=== PATIENT | male | born 1975 | race African-American/Black ===

== ENCOUNTER 2020-03-31 04:27 | Inpatient (IN) ==
[2020-03-31] MEDS ORDERED: SODIUM CHLORIDE 0.9% 1,000 ML IV STA (04:43)
[2020-03-31] MEDS ORDERED: ONDANSETRON 4 MG/2 ML VIAL IV STA (04:43)
[2020-03-31] MEDS ORDERED: DIPH/TET/ACEL PERT BOOSTER VACCINE 0.5 ML VIAL IM ONE (04:43)
[2020-03-31] MEDS ORDERED: HYDROmorphone 2 MG/1 ML VIAL IV STA (04:43)
[2020-03-31 05:07] LABS: Basophils % 0.2 % (0.0-0.8); Eosinophils # 0.1 10*3/uL (0.0-0.87); Hematocrit 43.7 VOL% (42.0-52.0); Hemoglobin 14.2 GM/DL (14.0-18.0); Immature Granulocytes % 0.4 %; Immature Granulocytes Absolute 0.04 #; Lymphocytes # 2.5 10*3/uL (1.4-4.0); Lymphocytes % 23.7 % (21.2-54.2); Mean Corpuscular HGB Conc 32.5 GM/DL (32-36); Mean Corpuscular Volume 99.1 FL (87-102); Mean Platelet Volume 10.2 FL (9.6-12.0); Monocytes % 10.9 % (1.7-12.7); Neutrophils % 63.8 % (38.7-73.9); Platelet Count 271 T/CUMM (130-400); Red Blood Count 4.41 MC/CUMM (3.8-5.5); Red Cell Distribution Width 13.2 % (9.3-17.3); White Blood Count 10.7 T/CUMM (4-12)
[2020-03-31 05:11] LABS: INR 0.9; PT Patient Result 9.8 SECS (9.8-11.9)
[2020-03-31 05:18] LABS: Alanine Aminotransferase 29 U/L (16-61); Albumin 3.5 G/DL (3.4-5.0); Alkaline Phosphatase 103 U/L (45-117); Aspartate Amino Transferase 25 U/L (0-37); Bilirubin,Total < 0.39 MG/DL (0.2-1.0); Blood Urea Nitrogen 15 MG/DL (7-18); Calcium 9.2 MG/DL (8.5-10.1); Estimated Glom Filtration Rate 98 ML/MIN; Glucose 87 MG/DL (74-106); Osmolality,Calculated 274.7 MOS/KG (273-304); Total Protein 7.5 G/DL (6.4-8.3)
[2020-03-31 05:26] LABS: Hypochromasia 1+; Platelet Estimate Adequate
[2020-03-31] MEDS ORDERED: SODIUM CHLORIDE 0.9% 1,000 ML IV SCH (06:39)
[2020-03-31] MEDS ORDERED: ceFAZolin 1,000 MG in SYRINGE 1 EACH IV ONE ×3 (06:39→08:26)
[2020-03-31] MEDS ORDERED: ONDANSETRON 4 MG/2 ML VIAL IV PRN ×2 (06:39→10:25)
[2020-03-31] MEDS ORDERED: HYDROmorphone 2 MG/1 ML VIAL IV PRN (06:39)
[2020-03-31] MEDS ORDERED: MAGNESIUM HYDROXIDE SUSP 30 ML UDCUP PO PRN (06:39)
[2020-03-31 06:59] LABS: Basophils % 0.2 % (0.0-0.8); Eosinophils % 0.4 % (0.00-10.9); Hematocrit 38.8 VOL% (42.0-52.0); Hemoglobin 12.8 GM/DL (14.0-18.0); Immature Granulocytes % 0.4 %; Immature Granulocytes Absolute 0.04 #; Lymphocytes # 2.1 10*3/uL (1.4-4.0); Lymphocytes % 21.1 % (21.2-54.2); Mean Corpuscular Volume 96.5 FL (87-102); Mean Platelet Volume 9.9 FL (9.6-12.0); Monocytes % 9.4 % (1.7-12.7); Neutrophils % 68.5 % (38.7-73.9); Platelet Count 242 T/CUMM (130-400); Red Blood Count 4.02 MC/CUMM (3.8-5.5); Red Cell Distribution Width 13.2 % (9.3-17.3); White Blood Count 9.8 T/CUMM (4-12)
[2020-03-31 07:18] LABS: Albumin 3.1 G/DL (3.4-5.0); Bilirubin,Total 0.9 MG/DL (0.2-1.0); Calcium 8.5 MG/DL (8.5-10.1); Total Protein 6.5 G/DL (6.4-8.3)
[2020-03-31 07:19] LABS: Osmolality,Calculated 277.5 MOS/KG (273-304)
[2020-03-31 07:23] LABS: Hypochromasia 1+; Lymphocytes 24 % (20-55); Platelet Estimate Adequate; Segmented Neutrophils 68 % (50-85); Total Cells Counted 100
[2020-03-31] MEDS ORDERED: BACITRACIN OINT 0.9 GM PACK TOP ONE (07:47)
[2020-03-31 08:14] LABS: Barbiturates Screen,Urine Negative (Negative); Benzodiazepines Screen,Urine Negative (Negative); Cannabinoid Screen,Urine Positive (Negative); Opiate Screen,Urine Positive (Negative); Phencyclidine Screen,Urine Negative (Negative)
[2020-03-31] MEDS ORDERED: ceFAZolin 1,000 MG VIAL ONE (08:27)
[2020-03-31] MEDS ORDERED: LIDOCAINE 2% 5 ML VIAL ONE (10:13)
[2020-03-31] MEDS ORDERED: SEVOFLURANE 1 UNIT/15 MINUTE INH ONE (10:13)
[2020-03-31] MEDS ORDERED: propofoL 200 MG/20 ML VIAL IV ONE (10:13)
[2020-03-31] MEDS ORDERED: ROCURONIUM 100 MG/10 ML VIAL IV ONE (10:14)
[2020-03-31] MEDS ORDERED: ESMOLOL 100 MG/10 ML VIAL IV ONE (10:14)
[2020-03-31] MEDS ORDERED: METOPROLOL TARTRATE 5 MG/5 ML VIAL IV ONE (10:14)
[2020-03-31] MEDS ORDERED: GLYCOPYRROLATE 0.4 MG/2 ML VIAL ONE (10:14)
[2020-03-31] MEDS ORDERED: ONDANSETRON 4 MG/2 ML VIAL ONE (10:14)
[2020-03-31] MEDS ORDERED: NEOSTIGMINE 10 MG/10 ML VIAL ONE (10:14)
[2020-03-31] MEDS ORDERED: DEXAMETHASONE 4 MG/1 ML VIAL ONE (10:14)
[2020-03-31] MEDS ORDERED: MIDAZOLAM 2 MG/2 ML VIAL ONE (10:14)
[2020-03-31] MEDS ORDERED: fentaNYL 100 MCG/2 ML VIAL ONE (10:14)
[2020-03-31] MEDS ORDERED: PHENYLEPHRINE 1 MG/10 ML SYRINGE IV ONE (10:15)
[2020-03-31] MEDS: HYDROmorphone 2 MG/1 ML VIAL IV PRN ×3 (10:29→11:34)
[2020-03-31] MEDS ORDERED: diphenhydrAMINE CAP 25 MG CAPSULE PO PRN (10:30)
[2020-03-31] MEDS ORDERED: MORPHINE 4 MG/1 ML VIAL IV PRN (10:30)
[2020-03-31] MEDS ORDERED: LACTATED RINGERS 1,000 ML IV SCH (10:30)
[2020-03-31] MEDS ORDERED: KETOROLAC 30 MG/1 ML VIAL IV PRN (10:30)
[2020-03-31] MEDS: ceFAZolin 1,000 MG in SYRINGE 1 EACH IV SCH (15:17)
[2020-03-31] MEDS: MORPHINE 4 MG/1 ML VIAL IV PRN (21:18)
[2020-04-01] MEDS: ceFAZolin 1,000 MG in SYRINGE 1 EACH IV SCH ×4 (00:25→23:22)
[2020-04-01] MEDS: MORPHINE 4 MG/1 ML VIAL IV PRN ×2 (04:51→20:21)
[2020-04-01 05:14] LABS: Basophils % 0.2 % (0.0-0.8); Eosinophils % 0.1 % (0.00-10.9); Hematocrit 37.6 VOL% (42.0-52.0); Hemoglobin 12.4 GM/DL (14.0-18.0); Immature Granulocytes % 0.5 %; Immature Granulocytes Absolute 0.07 #; Lymphocytes # 2.1 10*3/uL (1.4-4.0); Lymphocytes % 14.4 % (21.2-54.2); Mean Corpuscular Volume 95.4 FL (87-102); Mean Platelet Volume 10.4 FL (9.6-12.0); Monocytes % 12.3 % (1.7-12.7); Neutrophils % 72.5 % (38.7-73.9); Platelet Count 239 T/CUMM (130-400); Red Blood Count 3.94 MC/CUMM (3.8-5.5); Red Cell Distribution Width 13.1 % (9.3-17.3); White Blood Count 14.4 T/CUMM (4-12)
[2020-04-01 05:30] LABS: Calcium 8.4 MG/DL (8.5-10.1); Osmolality,Calculated 277.4 MOS/KG (273-304)
[2020-04-01] MEDS: FONDAPARINUX 2.5 MG/0.5 ML SYRINGE SUBCUT SCH (06:00)
[2020-04-02] MEDS: MORPHINE 4 MG/1 ML VIAL IV PRN (03:49)
[2020-04-02] MEDS: FONDAPARINUX 2.5 MG/0.5 ML SYRINGE SUBCUT SCH (07:59)
[2020-04-02] MEDS: ceFAZolin 1,000 MG in SYRINGE 1 EACH IV SCH ×2 (10:19→15:49)
[2020-04-02 16:47] VITALS: BP 131/87
== END 2020-04-02 16:35 | disposition home or self-care (01) | DRG 494 ==
LOC: N.EDINP 04:27 → N.ED 04:27 → OBSVTOIN 05:26 → N.3E 08:17
PROVIDERS: ADMIT Orthopaedic Surgery; ATTEND Orthopaedic Surgery